=== PATIENT | female | born 1940 | race Caucasian/White ===

== ENCOUNTER → 2016-10-29 16:45 | Outpatient (CLI) | payer MEDICARE ==
[2014-11-25 09:50] VITALS: BMI 36.0
[~2016-10-29 16:45] MED LIST: BAYER CHEWABLE81 MG PO; BENICAR HCT 40-1 TA1 PO; CALCI-CHEW1 TAB.CHEW PO; DEXILANT60 MG PO; ESTRADERM 0.10.1 MG TD; FERROUS SULFAT325 MG PO; SYNTHROID112 MCG PO; VITAMIN D31000 UNIT PO; VIVELLE-DO1 PATCH.B1 TD
== END | disposition home or self-care (01) ==
LOC: D.MAMMO 09:00
DX: Z12.31 Encounter for screening mammogram for malignant neoplasm of breast (principal)